=== PATIENT | male | born 1970 | race African-American/Black ===

== ENCOUNTER 2017-01-10 15:25 | Emergency (ER) | payer BC, OTHER ==
--- NOTE | 2017-01-10 16:23 | PDOC ---
History of Present Illness - General Chief Complaint: Pain Stated Complaint: POST SURGICAL PAIN Time Seen by Provider: 01/10/17 16:01 History Source: Patient Exam Limitations: No Limitations - History of Present Illness Initial Comments: 01/10/17 16:49 46 y.o. M pmh of htn POD 1 s/p abdominal hernia surgery presenting after a syncopal episode. Patient had surgery yesterday. Today he was in his kitchen alone and had an unwitnessed syncopal episode. Patient had LOC x 3-4 minutes. Patient denies head trauma. Patient states prior to the epiosde he was diaphoretic. After the episode he felt back to his normal self. Patient denies HUNG, n/v/d/c, chest pain, sob, calf tenderness. Patient endorses mild abdominal pain from the surgery. PSH- abdominal hernia surgery All- Penicillins SH- Denies smoking, alcohol, drug use PCP: Dr. Abel Past History - Past Medical History Allergies/Adverse Reactions: Allergies Allergy/AdvReac Type Severity Reaction Status Date / Time Penicillins Allergy Rash Verified 01/10/17 15:52 Home Medications: Ambulatory Orders Acetaminophen [Tylenol] 975 mg PO DAILY PRN #30 tablet 01/10/17 Hydrochlorothiazide [Hctz -] 12.5 mg PO BID 01/10/17 Oxycodone HCl 5 mg PO QID #12 capsule MDD 4 01/10/17 Oxycodone HCl 5 mg PO QID PRN #12 capsule MDD 4 tablets 01/10/17 GI Disorders: Yes (ULCERS) HTN: Yes - Surgical History Abdominal Surgery: Yes (HERNIA REPAIR) - Suicide/Smoking/Psychosocial Hx Smoking History: Never smoked Hx Alcohol Use: No Drug/Substance Use Hx: No Substance Use Type: None Review of Systems - Review of Systems Able to Perform ROS?: Yes Comments:: 01/10/17 16:23 GENERAL/CONSTITUTIONAL: No fever or chills. No weakness. HEAD, EYES, EARS, NOSE AND THROAT: No change in vision. No ear pain or discharge. No sore throat. CARDIOVASCULAR: No chest pain or shortness of breath RESPIRATORY: No cough, wheezing, or hemoptysis. GASTROINTESTINAL: No nausea, vomiting, diarrhea, +constipation. + abdominal pain GENITOURINARY: No dysuria, frequency, or change in urination. MUSCULOSKELETAL: No joint or muscle swelling or pain. No neck or back pain. SKIN: No rash NEUROLOGIC: No headache, vertigo, loss of consciousness, or change in strength/ sensation. ENDOCRINE: No increased thirst. No abnormal weight change HEMATOLOGIC/LYMPHATIC: No anemia, easy bleeding, or history of blood clots. ALLERGIC/IMMUNOLOGIC: No hives or skin allergy. *Physical Exam - Vital Signs Last Vital Signs Temp Pulse Resp BP Pulse Ox 98 F 83 18 143/76 98 01/10/17 15:49 01/10/17 15:49 01/10/17 15:49 01/10/17 15:49 01/10/17 15:49 - Physical Exam Comments: 01/10/17 16:23 GENERAL: Awake, alert, and fully oriented, in no acute distress HEAD: No signs of trauma, normocephalic, atraumatic EYES: PERRLA, EOMI, sclera anicteric, conjunctiva clear ENT: Auricles normal inspection, hearing grossly normal, nares patent, oropharynx clear without exudates. Moist mucosa NECK: Normal ROM, supple, no lymphadenopathy, JVD, or masses LUNGS: No distress, speaks full sentences, clear to auscultation bilaterally HEART: Regular rate and rhythm, normal S1 and S2, no murmurs, rubs or gallops, peripheral pulses normal and equal bilaterally. ABDOMEN: Soft, Diffuse tenderness, normoactive bowel sounds. No guarding, no rebound. No masses. Patient has sutures in place after laproscopic surgery EXTREMITIES: Normal inspection, Normal range of motion, no edema. No clubbing or cyanosis. NEUROLOGICAL: Cranial nerves II through XII grossly intact. Normal speech, normal gait, no focal sensorimotor deficits SKIN: Warm, Dry, normal turgor, no rashes or lesions noted. ED Treatment Course - LABORATORY CBC & Chemistry Diagram: 01/10/17 17:00 01/10/17 17:00 Medical Decision Making - Medical Decision Making 01/10/17 16:53 46 y.o. M pmh of htn POD 1 s/p abdominal hernia surgery presenting after a syncopal episode. Plan: CBC, CMP, EKG, Cardiac profile, IVF, Morphine 2mg, orthostatic vitals 01/10/17 17:[address] Lane(Patient's surgeon). Patient had uncomplicated surgery yesterday with 20 cc of blood loss. Likely syncopal episode not related to surgery per Dr. Lane 01/10/17 18:48 CBC unremarkable, CMP- elevated T bili, CK-715, Troponin negative x1 01/10/17 19:12 Care taken over by Dr. Parrish *DC/Admit/Observation/Transfer Diagnosis at time of Disposition: Abdominal pain Qualifiers: Abdominal location: generalized Qualified Code(s): R10.84 - Generalized abdominal pain; R10.84 - Generalized abdominal pain - Discharge Dispostion Disposition: HOME Condition at time of disposition: Improved - Prescriptions Prescriptions: Oxycodone HCl 5 mg PO QID PRN #12 capsule MDD 4 tablets PRN Reason: Pain Level 6-10 Oxycodone HCl 5 mg PO QID #12 capsule MDD 4 Acetaminophen [Tylenol] 975 mg PO DAILY PRN #30 tablet PRN Reason: Pain Level 1-5 - Referrals Referrals: Rachid Souza [Primary Care Provider] - - Patient Instructions Additional Instructions: You were seen for abdominal pain soon after your surgery. We believe this is all related to your recent surgery and will improve with time. Please try 975 mg (3 tablets) of Tylenol before taking the Oxycodone we prescribed. Please do not mix our medications with the medications that your surgeon gave you. Please return to the ED if you have schwartz that is not controlled by the medications we prescribed you.
[2017-01-10] MEDS ORDERED: morphine CARPU-JECT 4 MG/1 ML DISP.SYRIN IVPUSH ONE (16:29)
--- NOTE | 2017-01-10 16:39 | PDOC ---
Attending Attestation - Resident Resident Name: FabiolaKusum oconnorl - ED Attending Attestation I have performed the following: I have examined & evaluated the patient, The case was reviewed & discussed with the resident, I agree w/resident's findings & plan, Exceptions are as noted - HPI HPI: 01/10/17 16:37 46y hx of HTN, day 1 s/p abd hernia repair presents with episode of syncope. Pt notes that he has not been eating much since yesterdays surgery, he had some abdominal pain that is crampy in nature, intermittent, no associated n/v, and pt notes that he feels like passing gas, but wasnt able to pass gas. Pt notes that he felt the pain, felt diaphoretic, went to drink some water and then syncopzied. there was no seizure like activity, urinary bowel incontnence, back pain, headache, visoin changes, numbnes/tingling/weakness, diarrhea, bpr, melena. - Physicial Exam PE: 01/10/17 17:44 GENERAL: The patient is awake, alert, and fully oriented, Nontoxic - in no acute distress. HEAD: Normocephalic, atraumatic. EYES: extraocular movements intact, sclera anicteric, conjunctiva clear. ENT: Normal voice, Moist mucous membranes. NECK: Normal range of motion, supple LUNGS: Breath sounds equal, clear to auscultation bilaterally. No wheezes, no rhonchi, no rales. HEART: Regular rate and rhythm, normal S1 and S2 without murmur, rub or gallop. ABDOMEN: several incisions with sutures/tape, c/d/i w/o discharge, diffusely tender abdomen EXTREMITIES: Normal range of motion, no edema. No clubbing or cyanosis. No cords, erythema, or tenderness. NEUROLOGICAL: No facial assymetry, Normal speech, moving all 4 extermities spontaneously and symmetrically PSYCH: Normal mood, normal affect. SKIN: Warm, Dry, normal turgor, - Medical Decision Making 01/10/17 17:45 suspect possible vasovagal syncope c/b dehydration will obtain xray to r/o bstruction will obtain basic bloods will reassess will hydrate and reassess no risk factors for cardiac cause of syncope/arrythmia 01/10/17 22:45 labs reviewed pt feeling improved will dc with pmd fu retun precautions were discussed I discussed the physical exam findings, ancillary test results and final diagnoses with the patient. I answered all of the patient's questions. The patient was satisfied with the care received and felt comfortable with the discharge plan and treatment plan. The patient will call their primary care physician within 24 hours to arrange follow-up and will return to the Emergency Department with any new, persistent or worsening symptoms. Heart Score/ECG Review - ECG Impressions Comment:: 01/10/17 17:45 Twelve-lead EKG was performed and reviewed by me. There is normal sinus rhythm with a normal rate. rate of 74 The axis is normal. The intervals are normal. Nonspecific T wave of abnormalities
[2017-01-10] MEDS ORDERED: SODIUM CHLORIDE 1,000 ML IV STA (16:48)
[2017-01-10 17:13] LABS: BASOPHIL 0.1 % (0-2.0); EOSINOPHIL 0.3 % (0-4.5); MCH 25.8 pg (25.7-33.7); MEAN CELL VOLUME 80.6 fl (80-96); MEAN PLT VOLUME 8.8 fl (7.5-11.1); NEUTROPHILS 79.2 % (42.8-82.8); PLATELET COUNT 215 K/MM3 (134-434); WHITE BLOOD COUNT 9.5 K/mm3 (4.0-10.0)
[2017-01-10] MEDS ORDERED: morphine CARPU-JECT 2 MG/1 ML DISP.SYRIN ONE (17:15)
[2017-01-10 17:46] VITALS: BP 143/76; PULSE 83; TEMP 98; BMI 30.2
[2017-01-10 18:22] LABS: ALBUMIN 4.1 g/dl (3.4-5.0); ANION GAP 9 (8-16); CALCIUM 8.7 mg/dL (8.5-10.1); CO2 29 mmol/L (21-32); CREATININE 1.2 mg/dL (0.7-1.3); GLUCOSE,RANDOM 103 mg/dL (74-106); SGOT/AST 27 U/L (15-37); SGPT/ALT 34 U/L (12-78)
[2017-01-10 18:27] LABS: ALK PHOS 71 U/L (45-117); BILIRUBIN,TOTAL 1.7 mg/dL (0.2-1.0); CPK 715 IU/L (39-308); TOT PROT 7.4 g/dl (6.4-8.2); TROPONIN I < 0.02 ng/ml (0.00-0.05)
--- NOTE | 2017-01-10 21:50 | PDOC ---
*Physical Exam - Vital Signs Last Vital Signs Temp Pulse Resp BP Pulse Ox 98 F 83 18 143/76 98 01/10/17 15:49 01/10/17 15:49 01/10/17 15:49 01/10/17 15:49 01/10/17 15:49 - Physical Exam Gastrointestinal/Abdominal: positive: Tender (Tender over the surgical sites primarily. ), Flat, Soft ED Treatment Course - LABORATORY CBC & Chemistry Diagram: 01/10/17 17:00 01/10/17 17:00 - ADDITIONAL ORDERS Additional order review: Laboratory Results 01/10/17 17:00 Sodium 141 Potassium 3.8 Chloride 103 Carbon Dioxide 29 Anion Gap 9 BUN 15 D Creatinine 1.2 Creat Clearance w eGFR > 60 Random Glucose 103 Calcium 8.7 Total Bilirubin 1.7 H D AST 27 ALT 34 D Alkaline Phosphatase 71 D Creatine Kinase 715 H Creatine Kinase Index 0.3 CK-MB (CK-2) 2.152 Troponin I < 0.02 Total Protein 7.4 Albumin 4.1 01/10/17 17:00 RBC 4.81 MCV 80.6 MCHC 32.0 RDW 15.0 MPV 8.8 Neutrophils % 79.2 D Lymphocytes % 9.7 D Monocytes % 10.7 H Eosinophils % 0.3 Basophils % 0.1 - Medications Given in the ED: ED Medications Discontinued Medications Generic Name Dose Route Start Last Admin Trade Name Freq PRN Reason Stop Dose Admin Sodium Chloride 1,000 mls @ 1,000 mls/hr 01/10/17 16:48 01/10/17 17:17 Normal Saline - IV 01/10/17 17:47 1,000 mls/hr ASDIR STA Administration Morphine Sulfate 2 mg 01/10/17 16:29 01/10/17 17:17 Morphine Injection - IVPUSH 01/10/17 16:30 2 mg ONCE ONE Administration Medical Decision Making - Medical Decision Making Pain slightly improved after 2 x percocet so will discharge with return precautions. Abdominal X ray showing some subcutaneous air at surgical sites. 01/10/17 21:50 Spoke with patient abut his pain and he would like pain meds similar to what we have given him. Will recommend high dose Tylenol 975 prior to using oxycodones. Will right for 12 Oxycodone 5 tabs with return precautions. 01/10/17 22:26 *DC/Admit/Observation/Transfer Diagnosis at time of Disposition: Abdominal pain - Discharge Dispostion Admit: No - Referrals Referrals: Rachid Souza [Primary Care Provider] - - Patient Instructions Additional Instructions: You were seen for abdominal pain soon after your surgery. We believe this is all related to your recent surgery and will improve with time. Please take your medications for your pain as prescribed.
--- NOTE | 2017-01-11 19:16 | EKG ---
Test Reason : Blood Pressure : / mmHG Vent. Rate : 074 BPM Atrial Rate : 074 BPM P-R Int : 158 ms QRS Dur : 084 ms QT Int : 356 ms P-R-T Axes : 050 008 048 degrees QTc Int : 395 ms NORMAL SINUS RHYTHM ATRIAL ABNORMALITY NONSPECIFIC T WAVE ABNORMALITY ABNORMAL ECG NO PREVIOUS ECGS AVAILABLE REPEAT EKG IF CLINICALLY INDICATED Confirmed by IZAIAH MARTINS MD ([id number]) on 01/11/2017 7:15:30 PM Referred By: Confirmed By:IZAIAH MARTINS MD
== END 2017-01-10 23:13 | disposition home or self-care (01) ==
LOC: JER 15:25
PROC: 3E033NZ Introduction of Analgesics, Hypnotics, Sedatives into Peripheral Vein, Percutaneous Approach (ICD-10-PCS; principal; 2017-01-10)
PROC: 3E0337Z Introduction of Electrolytic and Water Balance Substance into Peripheral Vein, Percutaneous Approach (ICD-10-PCS; 2017-01-10)
DX: R10.84 Generalized abdominal pain (principal); Z98.890 Other specified postprocedural states; I10 Essential (primary) hypertension
CPT/HCPCS: 36415; 74020-TC; 80053; 82553; 84484; 85025; 93005; 93010; 99282-25

== ENCOUNTER 2021-08-19 16:52 | Emergency (ER) | payer OTHER, BC ==
[2021-08-19 17:40] VITALS: BP 166/79; PULSE 78; TEMP 98.1; BMI 31.0
[2021-08-19] MEDS ORDERED: KETOROLAC TROMETHAMINE 30 MG/1 ML VIAL IM ONE (17:48)
[2021-08-19] MEDS ORDERED: LIDOCAINE 5% TOPICAL PATCH TP ONE (17:48)
[2021-08-19] MEDS ORDERED: KETOROLAC TROMETHAMINE 30 MG/1 ML VIAL ONE (17:57)
[2021-08-19] MEDS ORDERED: LIDOCAINE 5% TOPICAL PATCH ONE (17:57)
[2021-08-19] MEDS ORDERED: LIDOCAINE PATCH REMOVAL MC SCH (22:00)
== END 2021-08-19 18:26 | disposition home or self-care (01) ==
LOC: JER 16:52
PROC: 3E0233Z Introduction of Anti-inflammatory into Muscle, Percutaneous Approach (ICD-10-PCS; principal; 2021-08-19)
DX: M54.2 Cervicalgia (principal); M79.601 Pain in right arm; V89.2XXA Person injured in unspecified motor-vehicle accident, traffic, initial encounter; Y92.9 Unspecified place or not applicable
CPT/HCPCS: 99284-25

== ENCOUNTER 2022-01-10 12:00 | Emergency (ER) | payer OTHER ==
[2022-01-10 12:34] VITALS: BP 164/76; PULSE 73; RESP 18; TEMP 97.2; BMI 35.4
[2022-01-10] MEDS ORDERED: KETOROLAC TROMETHAMINE 30 MG/1 ML VIAL IM ONE (13:01)
[2022-01-10] MEDS ORDERED: KETOROLAC TROMETHAMINE 30 MG/1 ML VIAL ONE (13:03)
[2022-01-10] MEDS ORDERED: LIDOCAINE 5% TOPICAL PATCH TP ONE ×2 (13:55→14:47)
[2022-01-10] MEDS ORDERED: LIDOCAINE 5% TOPICAL PATCH ONE ×2 (13:57→14:47)
[2022-01-10] MEDS ORDERED: LIDOCAINE PATCH REMOVAL MC SCH ×2 (22:00)
== END 2022-01-10 14:48 | disposition home or self-care (01) ==
LOC: JERFT 12:00 → JER 12:00 → JERFT 14:48
PROC: 3E0233Z Introduction of Anti-inflammatory into Muscle, Percutaneous Approach (ICD-10-PCS; principal; 2022-01-10)
DX: M54.12 Radiculopathy, cervical region (principal); M25.511 Pain in right shoulder
CPT/HCPCS: 71046-TC-FY; 72040-TC; 73030-TC-RT-FY; 73060-TC-RT-FY; 99284-25

== ENCOUNTER 2022-06-24 10:41 | Observation (INO) | payer BC, OTHER ==
[2022-06-24 11:08] VITALS: BMI 31.3
[2022-06-24] MEDS ORDERED: ACETAMINOPHEN 1000 MG/100 ML BAG IVPB ONE (11:39)
[2022-06-24] MEDS ORDERED: SODIUM CHLORIDE 0.9% 500 ML INFUS.BAG IV ONE ×2 (11:39→16:30)
[2022-06-24] MEDS ORDERED: ONDANSETRON 4 MG/2 ML VIAL IVPUSH ONE (11:39)
[2022-06-24] MEDS ORDERED: ONDANSETRON 4 MG/2 ML VIAL ONE (12:11)
[2022-06-24] MEDS ORDERED: ACETAMINOPHEN INJECTION 100 ML IVPB ONE ×2 (12:11→23:26)
[2022-06-24 13:00] LABS: INR 1.1 (0.83-1.09); PROTHROMBIN TIME (PATIENT) 12.8 SEC (9.7-13.0)
[2022-06-24 13:12] LABS: ALBUMIN 4.2 g/dl (3.4-5.0); CALCIUM 9.5 mg/dL (8.5-10.1)
[2022-06-24 13:13] LABS: BLOOD UREA NITROGEN 13.4 mg/dL (7-18)
[2022-06-24 13:15] LABS: CREATININE 1.3 mg/dL (0.55-1.3)
[2022-06-24 13:18] LABS: BASO % 0.1 % (0-2.0); HEMATOCRIT 39.4 % (35.4-49); HEMOGLOBIN 12.9 GM/dL (11.7-16.9); LYMPH % 5.6 % (8-40); MCH 25.9 pg (25.7-33.7); MCHC 32.9 g/dl (32.0-35.9); MEAN CELL VOLUME 78.8 fl (80-96); MEAN PLT VOLUME 9.7 fl (7.5-11.1); MONO % 7.9 % (3.8-10.2); NEUT % 86.4 % (42.8-82.8); PLATELET COUNT 205 10^3/uL (134-434); RDW 14.8 % (11.9-15.9)
[2022-06-24] MEDS ORDERED: ONDANSETRON 4 MG/2 ML VIAL IVPUSH PRN (17:27)
[2022-06-24] MEDS ORDERED: morphine CARPU-JECT 2 MG/1 ML DISP.SYRIN IVPUSH PRN (17:30)
[2022-06-24] MEDS: SODIUM CHLORIDE 1,000 ML IV SCH (18:25)
[2022-06-24] MEDS ORDERED: PANTOPRAZOLE SODIUM 40 MG VIAL IVPUSH ONE (19:34)
[2022-06-24] MEDS ORDERED: PANTOPRAZOLE SODIUM 40 MG/100 ML BAG IVPB ONE (19:36)
[2022-06-24] MEDS: ACETAMINOPHEN 1000 MG/100 ML BAG IVPB PRN (23:34)
[2022-06-25 08:31] LABS: BASO % 0.2 % (0-2.0); EOS % 0.3 % (0-4.5); HEMATOCRIT 38.1 % (35.4-49); HEMOGLOBIN 12.4 GM/dL (11.7-16.9); LYMPH % 17.4 % (8-40); MCH 25.6 pg (25.7-33.7); MCHC 32.7 g/dl (32.0-35.9); MEAN CELL VOLUME 78.5 fl (80-96); MEAN PLT VOLUME 10.1 fl (7.5-11.1); MONO % 13.6 % (3.8-10.2); NEUT % 68.5 % (42.8-82.8); PLATELET COUNT 188 10^3/uL (134-434); RBC 4.85 M/mm3 (4.00-5.60); RDW 15.1 % (11.9-15.9); WHITE BLOOD COUNT 6.4 K/mm3 (4.0-10.0)
[2022-06-25 08:57] LABS: CALCIUM 9.5 mg/dL (8.5-10.1)
[2022-06-25 08:58] LABS: ALBUMIN 3.9 g/dl (3.4-5.0); MAGNESIUM 2.3 mg/dL (1.8-2.4)
[2022-06-25 09:01] LABS: CREATININE 1.3 mg/dL (0.55-1.3); PHOSPHOROUS 4.6 mg/dL (2.5-4.9)
[2022-06-25 09:02] LABS: BILIRUBIN,TOTAL 1.8 mg/dL (0.2-1)
[2022-06-25 09:03] LABS: TOT PROT 7.3 g/dl (6.4-8.2)
[2022-06-25] MEDS: SODIUM CHLORIDE 1,000 ML IV SCH (09:19)
[2022-06-25] MEDS: ACETAMINOPHEN 1000 MG/100 ML BAG IVPB PRN (09:23)
[2022-06-25] MEDS ORDERED: ACETAMINOPHEN INJECTION 100 ML IVPB ONE (09:23)
[2022-06-25] MEDS ORDERED: LACTATED RINGERS SOLUTION 1,000 ML/1,000 ML INFUS.BAG IV SCH (09:45)
[2022-06-25] MEDS ORDERED: KETOROLAC TROMETHAMINE 15 MG/ML VIAL IVPUSH PRN (12:59)
[2022-06-25] MEDS: MAG HYDROX/AL HYDROX/SIMETH 30 ML UNIT-DOSE CUP PO PRN (13:14)
[2022-06-25] MEDS: FAMOTIDINE 20 MG TABLET PO SCH (21:30)
[2022-06-26 05:03] VITALS: RESP 18
[2022-06-26 08:42] LABS: BASO % 0.3 % (0-2.0); EOS % 1.3 % (0-4.5); HEMATOCRIT 34.4 % (35.4-49); HEMOGLOBIN 11.2 GM/dL (11.7-16.9); LYMPH % 28.2 % (8-40); MCH 25.7 pg (25.7-33.7); MCHC 32.6 g/dl (32.0-35.9); MEAN CELL VOLUME 78.8 fl (80-96); MEAN PLT VOLUME 9.6 fl (7.5-11.1); MONO % 15.5 % (3.8-10.2); NEUT % 54.7 % (42.8-82.8); PLATELET COUNT 168 10^3/uL (134-434); RBC 4.37 M/mm3 (4.00-5.60); RDW 14.9 % (11.9-15.9); WHITE BLOOD COUNT 5.7 K/mm3 (4.0-10.0)
[2022-06-26 08:59] LABS: CALCIUM 8.3 mg/dL (8.5-10.1)
[2022-06-26 09:00] LABS: ALBUMIN 3.2 g/dl (3.4-5.0); BLOOD UREA NITROGEN 15.9 mg/dL (7-18)
[2022-06-26 09:03] LABS: CREATININE 1.2 mg/dL (0.55-1.3)
[2022-06-26 09:04] LABS: TOT PROT 6.2 g/dl (6.4-8.2)
[2022-06-26 09:05] LABS: BILIRUBIN,TOTAL 1.1 mg/dL (0.2-1)
[2022-06-26] MEDS: FAMOTIDINE 20 MG TABLET PO SCH ×2 (10:27→22:23)
[2022-06-26] MEDS: MAG HYDROX/AL HYDROX/SIMETH 30 ML UNIT-DOSE CUP PO PRN ×2 (10:32→22:27)
[2022-06-27 09:24] LABS: BASO % 0.2 % (0-2.0); EOS % 1.2 % (0-4.5); HEMATOCRIT 34.2 % (35.4-49); HEMOGLOBIN 11.1 GM/dL (11.7-16.9); LYMPH % 37.2 % (8-40); MCH 25.4 pg (25.7-33.7); MCHC 32.3 g/dl (32.0-35.9); MEAN CELL VOLUME 78.4 fl (80-96); MEAN PLT VOLUME 9.7 fl (7.5-11.1); MONO % 14.6 % (3.8-10.2); NEUT % 46.8 % (42.8-82.8); PLATELET COUNT 172 10^3/uL (134-434); RBC 4.37 M/mm3 (4.00-5.60); RDW 14.8 % (11.9-15.9); WHITE BLOOD COUNT 5.2 K/mm3 (4.0-10.0)
[2022-06-27 09:31] VITALS: BP 142/85; PULSE 54; TEMP 98.4
[2022-06-27] MEDS: FAMOTIDINE 20 MG TABLET PO SCH (09:32)
[2022-06-27] MEDS ORDERED: amLODIPine BESYLATE 10 MG TABLET (FP) PO SCH (10:00)
[2022-06-27 11:52] LABS: CALCIUM 8.6 mg/dL (8.5-10.1)
[2022-06-27 11:53] LABS: ALBUMIN 3.2 g/dl (3.4-5.0); MAGNESIUM 2.4 mg/dL (1.8-2.4)
[2022-06-27 11:56] LABS: CREATININE 1.2 mg/dL (0.55-1.3)
[2022-06-27 11:57] LABS: PHOSPHOROUS 2.8 mg/dL (2.5-4.9)
[2022-06-27 11:58] LABS: TOT PROT 6.2 g/dl (6.4-8.2)
[2022-06-27 11:59] LABS: BILIRUBIN,TOTAL 0.8 mg/dL (0.2-1)
[2022-06-27 12:02] LABS: BLOOD UREA NITROGEN 13.1 mg/dL (7-18)
== END 2022-06-27 14:17 | disposition home or self-care (01) ==
LOC: JERFT 10:41 → JER 10:41 → JERBED 16:27 → J6S 06-25 09:56
PROVIDERS: ADMIT Internal Medicine; ATTEND Internal Medicine
PROC: 3E033NZ Introduction of Analgesics, Hypnotics, Sedatives into Peripheral Vein, Percutaneous Approach (ICD-10-PCS; principal; 2022-06-24)
PROC: 3E0337Z Introduction of Electrolytic and Water Balance Substance into Peripheral Vein, Percutaneous Approach (ICD-10-PCS; 2022-06-24)
PROC: 3E033NZ Introduction of Analgesics, Hypnotics, Sedatives into Peripheral Vein, Percutaneous Approach (ICD-10-PCS; 2022-06-24)
PROC: 3E033GC Introduction of Other Therapeutic Substance into Peripheral Vein, Percutaneous Approach (ICD-10-PCS; 2022-06-24)
PROC: 3E0337Z Introduction of Electrolytic and Water Balance Substance into Peripheral Vein, Percutaneous Approach (ICD-10-PCS; 2022-06-24)
DX: K56.609 Unspecified intestinal obstruction, unspecified as to partial versus complete obstruction (principal); I10 Essential (primary) hypertension; Z88.0 Allergy status to penicillin; Z91.013 Allergy to seafood; Z88.8 Allergy status to other drugs, medicaments and biological substances
CPT/HCPCS: 0241U-QW; 36415; 74177-TC; 80053; 82962; 83735; 84100; 85025; 85610; 86850; 86900; 86901; 93005; 93010; 99285-25; G0378; Q9967

== ENCOUNTER 2024-12-04 17:34 | Inpatient (IN) | payer BC ==
[2024-12-04 17:39] VITALS: BMI 31.6
[2024-12-04] MEDS ORDERED: ONDANSETRON 4 MG/2 ML VIAL ONE ×2 (18:53→22:44)
[2024-12-04 18:58] LABS: MCHC 31.3 g/dl (32.3-36.5); RDW 14.6 % (12.2-16.1)
[2024-12-04] MEDS: ONDANSETRON *ODT* 4 MG TABLET SL ONE (18:58)
[2024-12-04] MEDS: morphine CARPU-JECT 4 MG/1 ML DISP.SYRIN IVPUSH ONE (18:58)
[2024-12-04 19:01] LABS: MEAN CELL VOLUME 81.1 fl (79.0-92.2); MEAN PLT VOLUME 11.0 fl (9.4-12.4)
[2024-12-04 19:04] LABS: GLUCOSE,RANDOM 134.0 mg/dL (74-106); TOT PROT 7.9 g/dl (6.4-8.2)
[2024-12-04 19:05] LABS: CO2 27.0 mmol/L (21-32)
[2024-12-04 19:07] LABS: ALK PHOS 73.0 U/L (40-150)
[2024-12-04 19:09] LABS: INR 1.17 (0.83-1.09); PROTHROMBIN TIME (PATIENT) 12.9 SEC (9.7-13.0); SGPT/ALT 29.0 U/L (0-55)
[2024-12-04 19:10] LABS: CREATININE 1.15 mg/dL (0.55-1.3); SGOT/AST 29.0 U/L (5-34)
[2024-12-04 19:30] LABS: HCV DIAGNOSTIC IN-HOUSE W/RFLX NON-REACTIVE (NONREACTIVE); HIV INTERPRETATION NEGATIVE (NEGATIVE)
[2024-12-04] MEDS: LACTATED RINGERS SOLUTION 1,000 ML/1,000 ML INFUS.BAG IV SCH ×2 (20:39→23:06)
[2024-12-04] MEDS ORDERED: ACETAMINOPHEN 1000 MG/100 ML BAG IVPB PRN (21:52)
[2024-12-04] MEDS: ONDANSETRON 4 MG/2 ML VIAL IVPUSH SCH (22:41)
[2024-12-05 08:04] LABS: ABSOLUTE IMMATURE GRANULOCYTES 0.01 x10^3/uL (0.0-0.031); BASOPHILS # 0.00 x10^3/uL (0.01-0.08); EOSINOPHIL % 0.4 % (0.8-7.0); EOSINOPHILS # 0.02 x10^3/uL (0.04-0.54); MCHC 31.6 g/dl (32.3-36.5); MEAN CELL VOLUME 81.1 fl (79.0-92.2); MEAN PLT VOLUME 11.5 fl (9.4-12.4); MONOCYTE # 0.46 x10^3/uL (0.30-0.82); MONOCYTE % 10.2 % (5.3-12.2); RDW 14.7 % (12.2-16.1)
[2024-12-05 08:30] LABS: GLUCOSE,RANDOM 113.0 mg/dL (74-106); TOT PROT 6.6 g/dl (6.4-8.2)
[2024-12-05 08:31] LABS: CO2 26.0 mmol/L (21-32)
[2024-12-05 08:33] LABS: ALK PHOS 67.0 U/L (40-150)
[2024-12-05 08:36] LABS: CREATININE 1.17 mg/dL (0.55-1.3); SGOT/AST 23.0 U/L (5-34); SGPT/ALT 23.0 U/L (0-55)
[2024-12-06 15:53] VITALS: BP 110/77; PULSE 53; RESP 16; TEMP 98.2
== END 2024-12-06 18:50 | disposition home or self-care (01) | DRG 390 ==
LOC: JER 17:34 → JERBED 20:19 → J8W 22:53
PROVIDERS: ADMIT Internal Medicine; ATTEND Nurse Practitioner Family
DX: K56.609 Unspecified intestinal obstruction, unspecified as to partial versus complete obstruction (principal); R10.9 Unspecified abdominal pain; I10 Essential (primary) hypertension
CPT/HCPCS: 36415; 71045-TC-FY; 74019-TC-FY; 74177-TC; 80053; 83605; 83690; 83735; 84100; 85025; 85027; 85610; 86803; 86850; 86900; 86901; 87389; 93005; 93010; 99285-25; Q0162; Q9967